=== PATIENT | male | born 1935 | race Caucasian/White ===

== ENCOUNTER 2023-07-01 17:56 | Emergency (ER) | payer MEDICARE, SELFPAY ==
[2023-07-01 17:56] VITALS: BMI 32.3
[2023-07-01 17:58] VITALS: BP 122/72
[2023-07-01 18:17] LABS: % Basophils 0.1 % (0-2); % Eosinophils 2.3 % (0-6); % Immature Granulocytes 0.3 % (0-0.5); % Monocytes 9.2 % (1.7-9.3); % Neutrophils 82.1 % (42.2-75.2); Absolute Eosinophils 0.2 10^3/uL (0-0.7); Absolute Lymphocytes 0.5 10^3/uL (1.2-3.4); Absolute Monocytes 0.8 10^3/uL (0.1-0.6); Absolute Neutrophils 7.3 10^3/uL (1.4-6.5); Hematocrit 34.9 % (39.0-52.0); Hemoglobin 11.8 g/dL (13.0-18.0); Mean Corp Hgb Conc. 33.8 g/dL (33.0-37.0); Mean Corpuscular Hgb 29.4 pg (27.0-31.0); Mean Platelet Volume 12.1 fL (7.4-10.4); Nucleated Red Blood Cells % 0 % (-); Platelet Count 130 10^3/uL (130-400); Red Blood Cell Count 4.01 10^6/uL (4.70-6.10); Red Cell Dist. Width 13.2 % (11.5-14.5); White Blood Cell Count 8.9 10^3/uL (4.8-10.8)
[2023-07-01 18:24] LABS: Urine Albumin Trace (Neg - Trace); Urine Bilirubin Negative (Negative); Urine Character Clear (Clear); Urine Color Yellow; Urine Glucose Negative (Negative); Urine Ketone Trace (Negative); Urine Leukocyte Trace (Negative); Urine Nitrite Negative (Negative); Urine Occult Blood Negative (Negative); Urine Specific Gravity 1.015 (<1.030); Urine Urobilinogen Negative (Neg - 1+)
[2023-07-01 18:30] LABS: Urine Hyaline Cast 0-2 /LPF (0-2); Urine Red Blood Cell None Seen /HPF (0-2); Urine Squamous Cell 0-2 /LPF (Few); Urine White Cell 0-2 /HPF (0-5)
[2023-07-01 18:47] LABS: ALT (SGPT) 26 U/L (0-50); AST (SGOT) 24 U/L (17-59); Albumin 3.9 g/dl (3.5-5.0); Alkaline Phosphatase 54 U/L (38-126); Blood Urea Nitrogen 25 mg/dl (9-20); Calcium 9.7 mg/dl (8.4-10.2); Carbon Dioxide 28 mmol/L (22-30); Chloride 100 mmol/L (98-107); Glucose 129 mg/dl (70-99); Lipase 96 U/L (23-300); Potassium 4.1 mmol/L (3.5-5.1); Sodium 131 mmol/L (135-145); Total Bilirubin 1.1 mg/dl (0.2-1.3); Total Protein 6.6 g/dl (6.3-8.2); eGFR > 60.00
--- NOTE | 2023-07-01 21:33 | ED.GENMED ---
History of Present Illness
General
Chief Complaint: Abdominal Pain
Source: patient
Exam Limitations: none
Time Seen by Provider: 07/01/23 20:51
Nursing documentation reviewed up to this point in time: agreed with
Travel History
Have you had any contact with someone who has COVID-19?: No
Do you have any symptoms of coronavirus? Fever > 100 degrees, chills, cough, shortness of breath, sore throat, loss of taste or smell, muscle aches, or headache?: No
History of Present Illness
History of Present Illness:
87 y/o M with h/o hld
no sig pmh
here with abd pain intermittent, lower radiating up to his mid abdomen x 5 days, with lack of appetite, occ nausea, dry heaving;
he has had less BMs than usual, but thinks that he moved his bowels today but they are harder than usual
he went to urgent care 3 days ago and they said to come to the ER for a ct scan but pt thought he would wait it out a little longer
he thoguht it got better but it came back and was worse today
he has no pain now
has tried tums for nausea
he denies abdomianl distension, fever, chills, urinary syptoms, cp, sob.
Past History
Past History
ED Past Medical History: GERD
ED Past Surgical History: Negative Cardiac
Social History
Tobacco: Non-smoker
Alcohol: None
Drug: None
Personal:
Living: other (With his in assisted living)
Employment: Retired
Family History
Family History: Negative Early CAD or CAD
Review of Systems
Review of Systems
Allergies reviewed?: Yes
All Other Systems: Not applicable
Phy Exam
Physical Exam
Physical Exam:
GENERAL: Alert , in no apparent distress
EYE: pupils equal and reactive
NECK: Supple
ENT: o/p clr, mmm.
CARDIAC: Regular rate and rhythm .
LUNGS: Clear breath sounds bilaterally, no acute respiratory distress, no wheezes/rales/rhonchi
ABDOMEN: Soft, without focal tenderness, no r/g, no cvat, normal bowel sounds
NEUROLOGICAL: Alert and oriented, no focal neuro deficits
SKIN: Warm and dry, skin intact.
MUSCULOSKELETAL: No edema, well perfused. neg racquel's sign
PSYCH: Normal and appropriate interaction.
Course
Orders/Labs/Results
Orders:
Orders
07/01/23 18:11
CMP [Comprehensive Metabolic Panel] Urgent
Complete Blood Count/With Diff Urgent
Lipase Urgent
Comment: abdominal pain
07/01/23 18:17
Urinalysis Reflex To Culture Urgent
Date Specimen was Collected: 07/01/23
Time Specimen was Collected: 18:10
Urine Microscopic Reflex Cult Urgent
07/01/23 21:32
CT Abd/Pel (IV only)-DH only Urgent
Comment:
Reason For Exam: lower abd pain x 5 days, nausea, lack of appetite
07/01/23 23:47
Amoxicillin 875 mg/Clav 125 mg [Augmentin 875 mg/125 mg] 1 tablet PO NOW STA
Abnormal Lab Results
07/01/23 07/01/23
18:11 18:17
RBC 4.01 L 10^6/uL
(4.70-6.10)
Hgb 11.8 L g/dL
(13.0-18.0)
Hct 34.9 L %
(39.0-52.0)
MPV 12.1 H fL
(7.4-10.4)
Absolute Neuts (auto) 7.3 H 10^3/uL
(1.4-6.5)
Absolute Lymphs (auto) 0.5 L 10^3/uL
(1.2-3.4)
Absolute Monos (auto) 0.8 H 10^3/uL
(0.1-0.6)
Neutrophils % 82.1 H %
(42.2-75.2)
Lymphocytes % 6.0 L %
(20.5-51.1)
Sodium 131 L mmol/L
(135-145)
BUN 25 H mg/dl
(9-20)
Glucose 129 H mg/dl
(70-99)
Urine Ketones Trace A
(Negative)
Leukocyte Esterase Rfl Trace A
(Negative)
07/01/23 18:11
07/01/23 18:11
Vital Signs
Initial and Last Documented VS:
Initial Vital Signs
Temp Pulse Resp BP Pulse Ox
98.1 F 87 18 122/72 96
07/01/23 17:58 07/01/23 17:58 07/01/23 17:58 07/01/23 17:58 07/01/23 17:58
Last Documented Vital Signs
Temp Pulse Resp BP Pulse Ox
98.1 F 87 18 122/72 96
07/01/23 17:58 07/01/23 17:58 07/01/23 17:58 07/01/23 17:58 07/01/23 17:58
MDM/Problems Addressed
Differential Diagnosis Includes:
diverticulitis, constipation
MDM/Problems Addressed:
87-year-old male with a history of hyperlipidemia and remote prostate cancer presents for lower abdominal pain radiating into his upper abdomen over the last 5 days
went to urgent care and was told to come here
some nausea and lack of appetite
and mild ocnstipation, no bloody stool
no fever
well appearing, comfortable, nontender exam currently
labs reviewed, mildly dry but pt tolreating oral fluids
ct scan shows possible mild acute diverticultis
other incidental findings d/w patient, copy of report given
will cover with augmentin bid
clear liquids
d/c vitals 142/78 hr 72
*Critical Care Note
Total Time (30-74mins, 75-104mins- exclusive of procedures): Not Applicable
ED Attending Note
-
Portions of this chart may have been created with voice recognition software.� Occasional wrong word or��sound alike� substitutions may have occurred due to the inherent limitations of voice recognition software.
Discharge Plan
Departure
Patient Disposition: Home (Routine Discharge)
Date of Disposition: 07/01/23
Time of Disposition: 23:48
Patient with high blood pressure during this ER visit?: Yes
Condition: Fair
Covid-19: Not Applicable
Discharge Problem:
Diverticulitis
Instructions: Clear Liquid Diet, Diverticulitis (DC)
Prescriptions:
New
amoxicillin-pot clavulanate 875-125 mg tablet
1 tab PO Q12H Qty: 20 0RF
Referrals:
Alex Ortiz MD [Family Provider] - Follow up in 2-3 days
Activity Restrictions/Additional Instructions:
YOUR CAT SCAN SHOWS MILD DIVERTICULITIS
YOU SHOULD EAT A CLEAR LIQUID DIET FOR 24-48 HOURS TO GIVE YOUR BOWELS REST.
TAKE augmentin twice A DAY FOR 7-10 DAYS STARTING TOMORROW
YOU CAN FOLLOW UP WITH YOUR FAMILY DOCTOR WELL A GI DOCTOR
RETURN FOR: FEVER, WORSE PAIN, VOMITING, INABILITY TO TOLERATE LIQUIDS, BLOODY DIARRHEA OR ANY CONCERNS.
Interventions
Interventions:
*Risk Screen - Suicide Last Done: 07/01/23 20:36
*General Assessment Last Done: 07/01/23 20:36
*Neglect/Abuse Screening Last Done: 07/01/23 20:36
ED- Fall Risk Assessment Last Done: 07/01/23 20:36
*ED COVID-19 Vaccine History Last Done: 07/02/23 00:00
*Nursing Disposition Last Done: 07/02/23 00:00
OD-Kecdwu-Hmukvohayf Assessment Last Done: 07/01/23 20:36
Discharge Date and Time
Discharge Date/Time: 07/02/23 00:00
Print Language: AMHARIC
[2023-07-01 23:30] VITALS: BP 142/81
[2023-07-01] MEDS: AUGMENTIN 875 MG/125 MG 1 TABLET PO (23:51)
[2023-07-01 23:55] VITALS: BP 142/81
[2023-07-02 01:52] VITALS: BP 142/81
== END 2023-07-02 | disposition home or self-care (01) ==
LOC: EMR 17:56
PROVIDERS: Emergency Medicine; EMERGENCY PHYSICIAN Student in an Organized Health Care Education/Training Program; FAMILY PHYSICIAN Family Medicine
DX: K57.92 Diverticulitis of intestine, part unspecified, without perforation or abscess without bleeding (principal); R11.0 Nausea; R63.0 Anorexia; K59.00 Constipation, unspecified; R03.0 Elevated blood-pressure reading, without diagnosis of hypertension; E78.5 Hyperlipidemia, unspecified; K21.9 Gastro-esophageal reflux disease without esophagitis; Z85.46 Personal history of malignant neoplasm of prostate
CPT/HCPCS: 99285; 74177; 80053; 81003; 81015; 83690; 85025; Q9967

== ENCOUNTER → 2023-10-08 06:32 | Day surgery (SDC) | payer MEDICARE, SELFPAY | LOC: GI 06:32 | PROVIDERS: ATTENDING PHYSICIAN Specialist | DX: Z12.11 Encounter for screening for malignant neoplasm of colon (principal); K57.30 Diverticulosis of large intestine without perforation or abscess without bleeding; K55.20 Angiodysplasia of colon without hemorrhage; D12.5 Benign neoplasm of sigmoid colon; R63.0 Anorexia; R63.4 Abnormal weight loss; R68.81 Early satiety; Q39.9 Congenital malformation of esophagus, unspecified; K44.9 Diaphragmatic hernia without obstruction or gangrene; K31.5 Obstruction of duodenum; Z86.010 Personal history of colon polyps | CPT/HCPCS: 45385; 43239; 88305; 88342 ==

== ENCOUNTER → 2023-10-18 09:04 | Outpatient (REF) | payer MEDICARE, SELFPAY | LOC: RAD 09:04 | PROVIDERS: ATTENDING PHYSICIAN Specialist; FAMILY PHYSICIAN Family Medicine | DX: K31.5 Obstruction of duodenum (principal); R63.4 Abnormal weight loss | CPT/HCPCS: 74246 ==

== ENCOUNTER → 2023-11-01 11:44 | Outpatient (REF) | payer MEDICARE, SELFPAY | LOC: HWRAD 11:44 | PROVIDERS: ATTENDING PHYSICIAN Physician Assistant; FAMILY PHYSICIAN Family Medicine | DX: M84.48XD Pathological fracture, other site, subsequent encounter for fracture with routine healing (principal) | CPT/HCPCS: 72220 ==

== ENCOUNTER 2024-01-05 13:14 | Emergency (ER) | payer MEDICARE, SELFPAY ==
[2024-01-05 13:17] VITALS: BP 153/85
[2024-01-05 13:41] LABS: % Basophils 0.1 % (0-2); % Eosinophils 0.2 % (0-6); % Immature Granulocytes 0.4 % (0-0.5); % Monocytes 6.9 % (1.7-9.3); % Neutrophils 86.4 % (42.2-75.2); Absolute Lymphocytes 0.6 10^3/uL (1.2-3.4); Absolute Monocytes 0.7 10^3/uL (0.1-0.6); Absolute Neutrophils 8.7 10^3/uL (1.4-6.5); Hematocrit 36.2 % (39.0-52.0); Hemoglobin 12.4 g/dL (13.0-18.0); Mean Corp Hgb Conc. 34.3 g/dL (33.0-37.0); Mean Corpuscular Hgb 29.2 pg (27.0-31.0); Mean Corpuscular Volume 85.2 fL (80.0-94.0); Mean Platelet Volume 11.8 fL (7.4-10.4); Nucleated Red Blood Cells % 0 % (-); Platelet Count 171 10^3/uL (130-400); Red Blood Cell Count 4.25 10^6/uL (4.70-6.10); Red Cell Dist. Width 13.1 % (11.5-14.5)
[2024-01-05 14:04] LABS: ALT (SGPT) 16 U/L (0-50); AST (SGOT) 21 U/L (17-59); Albumin 4.5 g/dl (3.5-5.0); Alkaline Phosphatase 55 U/L (38-126); Blood Urea Nitrogen 24 mg/dl (9-20); Calcium 10.1 mg/dl (8.4-10.2); Carbon Dioxide 29 mmol/L (22-30); Chloride 101 mmol/L (98-107); Glucose 124 mg/dl (70-99); Lipase 97 U/L (23-300); Potassium 4.4 mmol/L (3.5-5.1); Sodium 140 mmol/L (135-145); Total Bilirubin 2.3 mg/dl (0.2-1.3); Total Protein 7.2 g/dl (6.3-8.2); eGFR > 60.00
--- NOTE | 2024-01-05 15:28 | ED.GENMED ---
History of Present Illness
General
Chief Complaint: Abdominal Symptoms
Source: patient
Exam Limitations: none
Time Seen by Provider: 01/05/24 14:07
History of Present Illness
History of Present Illness:
88-year-old male complaining of ongoing intermittent nausea abdominal bloating. Symptoms have been going on for many months. Has had an endoscopy and a colonoscopy without explanation. Nausea is worse the last day or so. No fever chills urinary
symptoms etc.
Past History
Past History
ED Past Medical History: GERD and Other (Large hiatal hernia)
ED Past Surgical History: Tonsilectomy and Other (Hiatal hernia repair); Negative Cardiac
Social History
Tobacco: Non-smoker
Alcohol: None
Drug: None
Personal:
Living: other (With his in assisted living)
Employment: Retired
Family History
Family History: Negative Early CAD or CAD
Review of Systems
Review of Systems
All Other Systems: Not applicable
Constitutional: Denies fever or chills
Respiratory: Reports no symptoms
Cardiac: Reports no symptoms
Phy Exam
Physical Exam
Physical Exam:
GENERAL: Alert and oriented in no apparent distress
EYE: Orbits normal.
NECK: Supple
CARDIAC: Regular rate and rhythm without any obvious murmurs.
LUNGS: Clear breath sounds,normal
ABDOMEN: Soft, without focal tenderness or distention
NEUROLOGICAL: Alert and oriented , grossly non-focal
SKIN: Warm and dry, no rash or lesion, no discoloration, skin intact.
MUSCULOSKELETAL: No edema,no deformity.Good color
PSYCH: Normal and appropriate interaction.
Course
Orders/Labs/Results
Orders:
Orders
01/05/24 13:20
EKG [Electrocardiogram (*1)] Urgent
Reason for Study: Abdominal Pain
01/05/24 13:21
EKG- Treatment ONCE
01/05/24 13:30
Complete Blood Count/With Diff Urgent
Comprehensive Metabolic Panel Urgent
Lipase Urgent
01/05/24 14:20
CT Abd/pel W Iv And Oral Contr Urgent
Comment:
Reason For Exam: Abdominal bloating nausea weight loss
IV Insert/Care/Rem.- Treatment PRN
0.9% Sodium Chloride 500 ml [Nss] 500 ml IV BOLUS
Iohexol [Omnipaque] See Protocol PO NOW STA
01/05/24 15:37
Troponin I Urgent
01/05/24 18:42
Urinalysis Reflex To Culture Urgent
Date Specimen was Collected: 01/05/24
Time Specimen was Collected: 18:41
Abnormal Lab Results
01/05/24 01/05/24
13:30 18:42
RBC 4.25 L 10^6/uL
(4.70-6.10)
Hgb 12.4 L g/dL
(13.0-18.0)
Hct 36.2 L %
(39.0-52.0)
MPV 11.8 H fL
(7.4-10.4)
Absolute Neuts (auto) 8.7 H 10^3/uL
(1.4-6.5)
Absolute Lymphs (auto) 0.6 L 10^3/uL
(1.2-3.4)
Absolute Monos (auto) 0.7 H 10^3/uL
(0.1-0.6)
Neutrophils % 86.4 H %
(42.2-75.2)
Lymphocytes % 6.0 L %
(20.5-51.1)
BUN 24 H mg/dl
(9-20)
Glucose 124 H mg/dl
(70-99)
Total Bilirubin 2.3 H mg/dl
(0.2-1.3)
Urine Ketones Trace A
(Negative)
01/05/24 13:30
01/05/24 13:30
Vital Signs
Initial and Last Documented VS:
Initial Vital Signs
Temp Pulse Resp BP Pulse Ox
98.4 F 85 18 153/85 97
01/05/24 13:17 01/05/24 13:17 01/05/24 13:17 01/05/24 13:17 01/05/24 13:17
Last Documented Vital Signs
Temp Pulse Resp BP Pulse Ox
98.7 F 61 18 150/84 98
01/05/24 18:00 01/05/24 18:00 01/05/24 18:00 01/05/24 18:00 01/05/24 18:00
MDM/Problems Addressed
Differential Diagnosis Includes:
Low suspicion for an acute surgical issue however with patient's weight loss ongoing nausea will be evaluated for cardiac or acute abdominal explanation.
*Radiology
Radiology exam reviewed: radiology read reviewed (CT: Compression fracture in T12. Known. Thickening ascending colon. Bladder wall thickening.)
*Pulse Oximetry
Patient hypoxic: no
*EKG
Interpreted by ED Provider?: Yes
Interpretation: normal
Comparison EKG: no changes
Heart Rate: 88
Rate: normal
Rhythm: sinus and PAC's
[place]: normal axis
Interval: normal interval
QRS Pattern: normal QRS
Ischemia: no ischemia
*Critical Care Note
Total Time (30-74mins, 75-104mins- exclusive of procedures): Not Applicable
Data Reviewed
Review of Other/Old Records Reveals: Labs, Radiology Studies and Testing
Update Note
Update Note:
Patient medically stable and nontoxic. Nothing acutely surgical or requiring admission. Copy of CT report given. Will follow-up bladder wall thickening with urology. Will contact his gizzard puller for the ascending colon issue.
ED Attending Note
-
Portions of this chart may have been created with voice recognition software.� Occasional wrong word or��sound alike� substitutions may have occurred due to the inherent limitations of voice recognition software.
Discharge Plan
Departure
Patient Disposition: Home (Routine Discharge)
Date of Disposition: 01/05/24
Time of Disposition: 19:16
Patient with high blood pressure during this ER visit?: Yes
Condition: Good
Discharge Problem:
Recurring nausea/weight loss, Thickening ascending colon, Bladder wall thickening, Known T12 compression fracture, Chronic inflammation right mid lung
Instructions: Nausea and Vomiting, Adult (DC), Abdominal Pain, BLOOD PRESSURE
Prescriptions:
New
ondansetron 4 mg tablet,disintegrating
4 mg PO TIDPRN PRN (Reason: nausea/vomiting) Qty: 14 0RF
No Action
amoxicillin-pot clavulanate 875-125 mg tablet
1 tab PO Q12H Qty: 20 0RF
Referrals:
Weston Gil MD [Active] - Next open appointment
Rip Phan MD [Active] - Next open appointment
Alex Ortiz MD [Family Provider] -
Activity Restrictions/Additional Instructions:
Follow-up with GI per the CT report
Follow-up with urology per the CT report
Follow-up with your primary physician
The nausea medicine prescription was sent to your pharmacy
Interventions
Interventions:
*Risk Screen - Suicide Last Done: 01/05/24 13:17
*General Assessment Last Done: 01/05/24 13:17
*Neglect/Abuse Screening Last Done: 01/05/24 13:17
ED- Fall Risk Assessment Last Done: 01/05/24 14:00
*ED COVID-19 Vaccine History Last Done: 01/05/24 13:17
*Nursing Disposition Last Done: 01/05/24 19:43
GU-Bnqcwa-Geocdgkdtq Assessment Last Done: 01/05/24 14:00
Discharge Date and Time
Discharge Date/Time: 01/05/24 19:15
Print Language: CAMBODIAN
[2024-01-05] MEDS: OMNIPAQUE 50 ML PO (15:38)
[2024-01-05] MEDS: NSS 500 IV (15:38)
[2024-01-05 16:07] LABS: Troponin I < 0.012 ng/ml
[2024-01-05 18:00] VITALS: BP 150/84
[2024-01-05 18:52] LABS: Urine Albumin Negative (Neg - Trace); Urine Bilirubin Negative (Negative); Urine Character Clear (Clear); Urine Color Straw; Urine Glucose Negative (Negative); Urine Ketone Trace (Negative); Urine Leukocyte Negative (Negative); Urine Nitrite Negative (Negative); Urine Occult Blood Negative (Negative); Urine Urobilinogen Negative (Neg - 1+)
== END 2024-01-05 19:15 | disposition home or self-care (01) ==
LOC: EMR 13:14
PROVIDERS: Emergency Medicine; EMERGENCY PHYSICIAN Emergency Medicine; FAMILY PHYSICIAN Family Medicine
DX: R11.0 Nausea (principal); R63.4 Abnormal weight loss; M48.54XA Collapsed vertebra, not elsewhere classified, thoracic region, initial encounter for fracture; J98.4 Other disorders of lung; R14.0 Abdominal distension (gaseous); K21.9 Gastro-esophageal reflux disease without esophagitis
CPT/HCPCS: 99284; 96360; 74177; 80053; 81003; 83690; 84484; 85025; 93005; Q9967

== ENCOUNTER 2024-01-10 13:35 | Inpatient (IN) | payer MEDICARE, SELFPAY ==
[2024-01-10] VITALS (19 sets, daily range): BP systolic 94–121; BP diastolic 57–95; BMI 22.5
[2024-01-10] MEDS: NSS 500 IV ×2 (10:48→13:12)
[2024-01-10 11:05] LABS: % Basophils 0.1 % (0-2); % Eosinophils 0.5 % (0-6); % Immature Granulocytes 0.2 % (0-0.5); % Lymphocytes 9.6 % (20.5-51.1); % Neutrophils 79.6 % (42.2-75.2); Absolute Lymphocytes 0.8 10^3/uL (1.2-3.4); Absolute Monocytes 0.8 10^3/uL (0.1-0.6); Absolute Neutrophils 6.5 10^3/uL (1.4-6.5); Hematocrit 34.4 % (39.0-52.0); Hemoglobin 11.8 g/dL (13.0-18.0); Mean Corp Hgb Conc. 34.3 g/dL (33.0-37.0); Mean Corpuscular Hgb 29.8 pg (27.0-31.0); Mean Corpuscular Volume 86.9 fL (80.0-94.0); Mean Platelet Volume 12.7 fL (7.4-10.4); Nucleated Red Blood Cells % 0 % (-); Platelet Count 149 10^3/uL (130-400); Red Blood Cell Count 3.96 10^6/uL (4.70-6.10); Red Cell Dist. Width 12.7 % (11.5-14.5); White Blood Cell Count 8.1 10^3/uL (4.8-10.8)
[2024-01-10 11:13] LABS: ALT (SGPT) 14 U/L (0-50); AST (SGOT) 17 U/L (17-59); Albumin 3.6 g/dl (3.5-5.0); Alkaline Phosphatase 56 U/L (38-126); Blood Urea Nitrogen 35 mg/dl (9-20); Calcium 8.9 mg/dl (8.4-10.2); Carbon Dioxide 27 mmol/L (22-30); Chloride 99 mmol/L (98-107); Estimated Creatinine Clearance 49 ml/min; Glucose 118 mg/dl (70-99); Magnesium 1.9 mg/dl (1.6-2.3); Potassium 3.9 mmol/L (3.5-5.1); Sodium 135 mmol/L (135-145); Total Bilirubin 1.9 mg/dl (0.2-1.3); Total Protein 5.9 g/dl (6.3-8.2); eGFR > 60.00
--- NOTE | 2024-01-10 13:03 | ED.GENMED ---
History of Present Illness
General
Chief Complaint: Heart Rate Problem
Source: patient
Time Seen by Provider: 01/10/24 10:40
History of Present Illness
History of Present Illness:
88-year-old male who presents from his nurse practitioner who discovered he had new onset atrial fibrillation. The patient does admit that he has lost a significant weight recently and has been weak and fatigued. Patient states that he is not
really sure what has been going on but he has not been able to eat very well. He was seen in the emergency department recently and had labs and a CT scan. He also had an endoscopy and colonoscopy by gastroenterology back in October. Patient denies
chest pain. Denies palpitations. No shortness of breath. No fevers.
Past History
Past History
ED Past Medical History: GERD and Other (Large hiatal hernia, prostate cancer)
ED Past Surgical History: Tonsilectomy and Other (Hiatal hernia repair); Negative Cardiac
Social History
Tobacco: Non-smoker
Alcohol: None
Drug: None
Personal:
Living: other (With his in assisted living)
Employment: Retired
Family History
Family History: Negative Early CAD or CAD
Phy Exam
Physical Exam
Physical Exam:
CONSTITUTIONAL Patient alert and oriented to person, place and time. Well-appearing. Vital signs reviewed.
HEAD atraumatic, normocephalic.
EYES eyelids normal to inspection, Extraocular muscles intact, Conjunctiva normal, Sclera normal.
NECK normal range of motion, Trachea midline, no jugular venous distention.
RESPIRATORY CHEST No respiratory distress noted, Chest expansion equal, Bilateral breath sounds clear.
CARDIOVASCULAR irregularly irregular and tachycardic, Heart sounds normal.
ABDOMEN abdomen nontender, Bowel sounds normal. No distention.
BACK normal inspection, no obvious deformities
UPPER EXTREMITY range of motion normal, Motor strength normal, no cyanosis, no edema.
LOWER EXTREMITY range of motion normal, Motor strength normal, no cyanosis, no edema.
NEURO Speech normal, No focal motor deficits, Marcella coma scale 15, Memory normal, Cranial Nerves intact to screening exam.
SKIN skin warm, dry, and normal in color.
Course
Orders/Labs/Results
Orders:
Orders
01/10/24 10:38
Electrocardiogram (*1) Urgent
Reason for Study: Vertigo / Dizzy
EKG- Treatment ONCE
01/10/24 10:47
0.9% Sodium Chloride 500 ml [Nss] 500 ml IV BOLUS
01/10/24 10:51
Complete Blood Count/With Diff Urgent
Comprehensive Metabolic Panel Urgent
Magnesium Urgent
TSH Reflex To Free T4 Urgent
01/10/24 12:39
0.9% Sodium Chloride 500 ml [Nss] 500 ml IV BOLUS
01/10/24 13:03
Diltiazem 125 mg/125 ml Nss [Cardizem] 125 mg in 125 ml IV NOW
Initial dose in mg/hr, then titrate:: 5
Titrate to keep:: Heart rate 80-100 bpm
Titrate by mg/hr:: 5 mg/hr
Frequency of titrations (minutes):: 15
Maximum dose in mg/hr:: 15
Diltiazem HCl [Cardizem] 10 mg IV NOW STA
Abnormal Lab Results
01/10/24
10:51
RBC 3.96 L 10^6/uL
(4.70-6.10)
Hgb 11.8 L g/dL
(13.0-18.0)
Hct 34.4 L %
(39.0-52.0)
MPV 12.7 H fL
(7.4-10.4)
Absolute Lymphs (auto) 0.8 L 10^3/uL
(1.2-3.4)
Absolute Monos (auto) 0.8 H 10^3/uL
(0.1-0.6)
Neutrophils % 79.6 H %
(42.2-75.2)
Lymphocytes % 9.6 L %
(20.5-51.1)
Monocytes % 10.0 H %
(1.7-9.3)
BUN 35 H mg/dl
(9-20)
Glucose 118 H mg/dl
(70-99)
Total Bilirubin 1.9 H mg/dl
(0.2-1.3)
Total Protein 5.9 L g/dl
(6.3-8.2)
01/10/24 10:51
01/10/24 10:51
Vital Signs
Initial and Last Documented VS:
Initial Vital Signs
Temp Pulse Resp BP Pulse Ox
98.5 F 119 20 102/63 98
01/10/24 10:34 01/10/24 10:34 01/10/24 10:34 01/10/24 10:34 01/10/24 10:34
Last Documented Vital Signs
Temp Pulse Resp BP Pulse Ox
98.5 F 111 20 96/85 97
01/10/24 10:34 01/10/24 13:00 01/10/24 13:00 01/10/24 13:00 01/10/24 13:00
MDM/Problems Addressed
MDM/Problems Addressed:
Atrial fibrillation with RVR, volume contraction
*Pulse Oximetry
Patient hypoxic: no
*EKG
Interpreted by ED Provider?: Yes
Interpretation: abnormal
Rate: tachycardiac
Rhythm: a-fib
[place]: normal axis
Ischemia: non-specific ST changes
*[employer] Interpretation
Rate: tachycardiac
Interpretation: abnormal
Rhythm: a-fib
*Critical Care Note
Total Time (30-74mins, 75-104mins- exclusive of procedures): 30 minutes
Data Reviewed
Review of Other/Old Records Reveals: Radiology Studies (CT report reviewed from January 04), Operative Reports (Colonoscopy report reviewed from October) and Other
Source: patient
Patient Management
Discussion with other providers: Hospitalist
Escalation/DeEscalation of care consider admission/obs:
Patient arrives with relative hypotension and atrial fibrillation with RVR. Unclear of onset of A-fib but did have an EKG 5 days ago that was normal sinus rhythm. Control the rate. Continue IV fluids and admit
ED Attending Note
-
Portions of this chart may have been created with voice recognition software.� Occasional wrong word or��sound alike� substitutions may have occurred due to the inherent limitations of voice recognition software.
Discharge Plan
Departure
Patient Disposition: Admit
Date of Disposition: 01/10/24
Time of Disposition: 13:03
Admit to: Telemetry
Presentation/result/management discussed w/ accepting MD/DO: Hospitalist
Discharge Problem:
Atrial fibrillation with RVR
Prescriptions:
No Action
amoxicillin-pot clavulanate 875-125 mg tablet
1 tab PO Q12H Qty: 20 0RF
ondansetron 4 mg tablet,disintegrating
4 mg PO TIDPRN PRN (Reason: nausea/vomiting) Qty: 14 0RF
Referrals:
Sonal Quintanilla CRNP [Family Provider] -
Interventions
Interventions:
*Risk Screen - Suicide Last Done: 01/10/24 10:41
*General Assessment Last Done: 01/10/24 10:41
*Neglect/Abuse Screening Last Done: 01/10/24 10:41
ED- Fall Risk Assessment Last Done: 01/10/24 10:41
*ED COVID-19 Vaccine History Last Done: 01/10/24 10:41
ED- Cardiac Assessment Last Done: 01/10/24 10:41
ED- Pulmonary Assessment Last Done: 01/10/24 10:41
Discharge Date and Time
Print Language: CENTRAL AFRICAN
[2024-01-10] MEDS: CARDIZEM 10 MG IV (13:08)
[2024-01-10] MEDS: CARDIZEM 125 IV (13:12)
--- NOTE | 2024-01-10 13:30 | HPS.HSE ---
Family Physician
-
Family Physician: LUNA Wall
Chief Complaint
-
SCHEDULE MANAGER sent in for new AF and Wt loss
History of Present Illness
88M HX GERD, large hiatal hernia, prostate CA :
- Primary SCHEDULE MANAGER sent patient to ER for new onset atrial fibrillation
- reports poor PO , weak and fatigue with unintentional significant wt loss
- He also had an endoscopy and colonoscopy by gastroenterology back in October 2023: report and patho as below
- 01/05/24 CT AP w IV contrast reviewed as below
Medical History
Past Medical History
Past Medical History: Reports Cancer (prostate ) and GERD (large hiatal hernia )
Past Surgical History: Reports Tonsilectomy and Other (hernial repair )
Social History
Tobacco: Non-smoker
Alcohol: None
Personal:
Living: With Family
Family History
Family History: Not pertinent and CAD
Allergies / Home Medications
Allergies reflects when Allergies were last updated in [facility].
Home Medications with original date entered in [facility]
Allergy/Medication List:
Allergies
Allergy/AdvReac Type Severity Reaction Status Date / Time
No Known Drug Allergies Allergy Unknown Verified 01/10/24 10:41
Home Medications
atorvastatin 80 mg tablet (Lipitor) 80 mg PO HS 01/10/24
omeprazole 20 mg tablet,delayed release 20 mg PO DAILY 01/10/24
polyethylene glycol 3350 17 gram oral powder packet (Miralax) 17 g PO DAILYPRN PRN CONSTIPATION 01/10/24
tadalafil 5 mg tablet 5 mg PO QPM 01/10/24
tamsulosin 0.4 mg capsule (Flomax) 0.4 mg PO HS 01/10/24
Review of Systems
-
Constitutional: Reports Weight Loss
EENT: Reports No Symptoms
Respiratory: Reports No Symptoms
Cardiac: Reports See HPI
Abdomen/GI: Reports No Symptoms
: Reports No Symptoms
Musculoskeletal: Reports No Symptoms
Skin: Reports No Symptoms
Neurological: Reports No Symptoms
Endocrine: Reports No Symptoms
Hematologic/Lymphatic: Reports No Symptoms
Psych: Reports No Symptoms
Physical Exam
Vital Signs
Vital Signs
Temp Pulse Resp BP Pulse Ox
98.5 F 111 20 119/80 97
01/10/24 10:34 01/10/24 13:08 01/10/24 13:00 01/10/24 13:08 01/10/24 13:00
Physical Exam
General: Well Developed, Well Nourished and No Apparent Distress
HEENT: NormoCephalic, Moist mucous membranes and Atraumatic
Respiratory: Clear
Cardiac: Irregular Rhythm and Tachycardia
GI: Soft, Non Tender, Non Distended and Normal Bowel Sounds; No Organomegaly
Rectal: Deferred by Provider
Musculoskeletal: No Clubbing, No Cyanosis and No Edema
Skin: No Rash
Neuro: Nonfocal/grossly intact
Laboratory Results
-
01/10/24 10:51
01/10/24 10:51
Laboratory Results
Total Bilirubin 1.9 mg/dl (0.2-1.3) H 01/10/24 10:51
AST 17 U/L (17-59) 01/10/24 10:51
ALT 14 U/L (0-50) 01/10/24 10:51
Alkaline Phosphatase 56 U/L (38-126) 01/10/24 10:51
Data Reviewed
-
CT Scan: Report Reviewed by me
Medical Tests (Nuc Med, Echo, EKG etc): Report Reviewed by me
Lab Data: Labs Reviewed by me
Old Records: Reviewed
Impression/Plan
-
Data
Hgb 11.8 nl MCV
BUN 35 nl Cr eGFR > 60
TB 1.9
TSH nl @ 1.5
01/10/24 & 1038 EKG
ATRIAL FIBRILLATION WITH RAPID VENTRICULAR RESPONSE
ABNORMAL ECG
WHEN COMPARED WITH ECG OF 05-JAN-2024 13:25,
ATRIAL FIBRILLATION HAS REPLACED SINUS RHYTHM
Confirmed by MD TOM, ANDREY Delacruz ([id number]) on 01/10/2024 11:11:14 AM
01/05/24 CT AP w IV contrast
There is a moderate compression deformity of the T12 vertebral body with a new mild compression deformity of the L1 vertebral body which is new from prior CT in June 2023.
Chronic tree-in-bud opacities and bronchiectasis within the right middle lobe, similar in appearance to prior and favored to represent chronic/indolent infectious process.
There is apparent circumferential wall thickening within the proximal ascending colon which may be secondary to underdistention however a lesion could appear similar. Consider follow-up colonoscopy for further evaluation.
Mild circumferential wall thickening with suggestion of mild stranding along the urinary bladder which can be seen with cystitis.
Large hiatal hernia, unchanged unchanged in appearance from prior.
10/08/23 EGD
Tortuous esophagus.
- Large hiatal hernia.
- Acquired duodenal stenosis. Biopsied.
- Biopsies were taken with a cold forceps for Helicobacter pylori testing.
- Biopsies were taken with a cold forceps for evaluation of celiac disease.
10/08/23 Biopsy from EGD and C Scope
A. Duodenum, bulb, biopsy:
- Unremarkable duodenal mucosa with well-formed villi.
- No active duodenitis or intraepithelial lymphocytosis is seen.
B.Duodenum, 2nd portion, biopsy:
- Unremarkable duodenal mucosa with well-formed villi.
- No active duodenitis or intraepithelial lymphocytosis is seen.
C. Stomach, antrum, biopsy:
- Unremarkable gastric mucosa.
- Immunostain performed with working control is negative for Helicobacter*.
D. Stomach, body, biopsy:
- Unremarkable gastric mucosa.
- Immunostain performed with working control is negative for Helicobacter*.
E. Duodenal bulb, stricture, biopsy:
- Benign duodenal mucosa without significant histopathologic abnormality.
- No active duodenitis or intraepithelial lymphocytosis is seen
Colon, sigmoid, polyp, biopsy: Tubular adenoma. No high-grade dysplasia is identified
ASSESSMENT & PLAN
New onset rapid AF : asymptomatic
Known to [facility] in 2012 Stress Echo
Of note; Dr Dylon Jackson is cardilogist of his
- Diltiazem gtt
- S/p IV NS 1.5 L at ER for hypotension - improved to 110/80
- ECHO in AM
- Defer AC to card evaluation
- [facility] card consulted
Reported wt loss and poor PO
- nl TSH
- unremarkable EGD and C Scopt as of October [address] suggest Circumferential wall thickening within the proximal ascending colon which may be secondary to underdistention however a lesion could appear similar.
- Consider follow-up OP colonoscopy upon DC
- Known to Dr Holcomb
HLD
- on Lipitor
HX Prostate CA s/p XRT at [facility] 10 yrs ago
- on Tamsulosin
DVT Px: LMWH
Code: Full code
IMU for Diltiazem titration
--- NOTE | 2024-01-10 17:00 | PTCARENOTE ---
Received patient on admission from ED via stretcher with cardizem infusing at 5mg/hr. Patient able to walk short distance from stretcher to bed without difficulty. HR increased to 120s but recovered to 90s shortly after resting in bed. Echo
completed. Patient assisted to stand at side of bed to urinate and HR increased to 140s; remained low 100s after getting back to bed. Asymptomatic otherwise. Cardizem increased to 10mg/hr as per order; HR currently 96 with patient in bed. See
worklist for full assessment, vital signs and med titration. Admission questions completed.
Patient requested his son be listed as primary contact with new phone number provided; admissions notified and chart updated. He states his is in another healthcare facility.
[2024-01-10] MEDS: LOVENOX 40 MG SC (17:21)
[2024-01-10] MEDS: FLOMAX 0.4 MG PO (21:21)
[2024-01-10] MEDS: LIPITOR 80 MG PO (21:21)
[2024-01-11] VITALS (16 sets, daily range): BP systolic 107–138; BP diastolic 54–81; BMI 22.5
[2024-01-11] MEDS: CARDIZEM 125 IV (02:41)
[2024-01-11 05:00] LABS: Hematocrit 34.2 % (39.0-52.0); Hemoglobin 11.5 g/dL (13.0-18.0); Mean Corp Hgb Conc. 33.6 g/dL (33.0-37.0); Mean Corpuscular Hgb 29.3 pg (27.0-31.0); Mean Corpuscular Volume 87.2 fL (80.0-94.0); Mean Platelet Volume 12.3 fL (7.4-10.4); Platelet Count 137 10^3/uL (130-400); Red Blood Cell Count 3.92 10^6/uL (4.70-6.10); Red Cell Dist. Width 12.9 % (11.5-14.5); White Blood Cell Count 7.7 10^3/uL (4.8-10.8)
[2024-01-11 05:39] LABS: TSH 1.43 uIU/ml (0.47-4.68)
[2024-01-11 06:55] LABS: Blood Urea Nitrogen 26 mg/dl (9-20); Calcium 8.7 mg/dl (8.4-10.2); Carbon Dioxide 25 mmol/L (22-30); Chloride 100 mmol/L (98-107); Estimated Creatinine Clearance 61 ml/min; Glucose 104 mg/dl (70-99); HDL Cholesterol 56 mg/dl; LDL Cholesterol, Calculated 86 mg/dl; Potassium 3.8 mmol/L (3.5-5.1); Sodium 134 mmol/L (135-145); Total Cholesterol 160 mg/dl (50-199); Triglyceride 92 mg/dl (10-149); Very Low Density Lipoprotein 18 mg/dl (0-30); eGFR > 60.00
--- NOTE | 2024-01-11 07:20 | SUR.OPER ---
Cannot verify VS captured from prior shift.
--- NOTE | 2024-01-11 08:56 | W.PN.HOSP.TC ---
Addendum entered and electronically signed by Gala Cerna MD, Resident 01/13/24 12:01:
Moderate protein calorie malnutrition
Addendum entered and electronically signed by Lisa Calzada MD 01/11/24 14:01:
I saw and evaluated the patient independently. I reviewed the resident�s note and agree with findings and plan as documented by Dr. Cerna.
GENERAL: well developed, well nourished, male in no apparent distress
HEENT: NC/AT
HEART: regular rate and rhythm, +S1, +S2
LUNGS : clear to auscultation bilaterally
ABDOM: soft, nontender, nondistended, + bowel sounds
EXT: no cyanosis, clubbing, or edema
NEUROLOGIC: grossly intact
New onset atrial fibrillation, likely paroxysmal--did get cardizem drip--now converted to NSR--ECHO with preserved EF--transition to Toprol XL daily and start Eliquis--apprec pricing by --TSH WNL- Reassess for discharge home later today- Will need
outpatient cardiology follow up
GI complaints/Hiatal hernia/unintensional weight loss-- 45lbs over 6 month, poor appetite and bloating for past 1-2 months, and abdominal pain which may be radiation of chronic back pain--being worked up by GI as outpt--return to GI for ongoing
w/u- Continue prn bowel regimen- Continue protonix; takes omeprazole 20mg qd at home
Stress- Reports lot of stress with having Parkinsons disease, says she is now at a care facility- May be contributing to GI complaints, though he still needs GI workup - Says he manages stress well, declines further intervention
HLD- continue home atorvastatin
H/o prostate CA s/p [facility] 10 [facility]- continue home tamsulosin
DVT proph
Code status-- full
ok for d/c
Original Note:
Today's Communication/Plan
-
start Toprol xl 25mg and eliquis, stop diltiazem gtt
Assessment / Plan
Assessment / Plan
88yo M with PMH large hiatal hernia, prostate CA who presented to ED 01/10/24 for episode dizziness that AM and new onset afib sent in by [employer]. Otherwise did not know he was in afib, denies ongoing lightheadedness, palpitations, etc.
New onset atrial fibrilation, likely paroxysmal
- Started on diltiazem gtt for HR > 110
- Echo 01/10/24 showed normal LV function, EF 55-60%, no regional wall motion, no thrombus
- TSH wnl, A1C pending
- 01/10 spontaneous conversion to normal sinus, HR has been 80s-90s
- Discussed case with cardiology- will transition to diltiazem gtt to Toprol xl 25mg PO daily
- Initiate eliquis 5mg BID, CM consult for pricing
- Reassess for discharge home later today
- Will need outpatient cardiology follow up
GI complaints
Hiatal hernia
- Reports unintentional weight loss of 45# over 6 month, poor appetite and bloating for past 1-2 months, and abdominal pain which may be radiation of chronic back pain
- He previously has had EGD, colonoscopy, CT imaging prior to this hospitalization and he follows with GI (Dr Gil)
- Tolerating PO diet, will defer further workup to outpatient GI (next appointment scheduled for 01/14)
- Continue prn bowel regimen
- Continue protonix; takes omeprazole 20mg qd at home
Stress
- Reports lot of stress with having Parkinsons disease, says she is now at a care facility
- May be contributing to GI complaints, though he still needs GI workup
- Says he manages stress well, declines further intervention
HLD- continue home atorvastatin
H/o prostate CA [facility]- continue home tamsulosin
Code status: full
VTE ppx: lovenox --> eliquis
Diet: low Na, ensure supplementation
Dispo planning: anticipate dc home, timing tbd
Anticipated Discharge: Within 24 hours
Subjective/Interval History
-
Date of Service: January 11, 2024
Overnight, spontaneously converted from afib to normal sinus rhythm. He says he feels 'okay.' This morning complains of chronic poor appetite, chronic back pain which he rates a 2 out of 10 right now. His back pain occasionally radiates to abdomen-
no abdominal pain this AM. He denies lightheadedness, dizziness, chest pain, palpitations, shortness of breath, nausea, vomiting. One episode of diarrhea last week, no ongoing diarrhea. Last BM ws 3 days ago, no black or bloody stools. Reports solid
bowel movements that are difficult to pass, though they are 'less rock hard' compared to when he was on oxycodone for back pain > 1 month ago. At home ambulates independently without difficulty, has not been OOB today. Tolerating PO diet.
Objective Data
-
Labs:
Laboratory Results
01/11/24 01/11/24 01/11/24
04:30 05:20 06:14
WBC 7.7
Hgb 11.5 L
Hct 34.2 L
Plt Count 137
Sodium Cancelled Cancelled 134 L
Potassium Cancelled Cancelled 3.8
Chloride Cancelled Cancelled 100
Carbon Dioxide Cancelled Cancelled 25
BUN Cancelled Cancelled 26 H
Creatinine Cancelled Cancelled 0.8
Glucose Cancelled Cancelled 104 H
Calcium Cancelled Cancelled 8.7
Vital Signs:
Vital Signs
Temp Pulse Resp BP Pulse Ox
98.4 F 95 19 107/63 96
01/11/24 07:05 01/11/24 00:00 01/11/24 00:00 01/11/24 00:00 01/11/24 00:00
Review of Systems
-
History Source: Patient
All other systems: Reviewed and negative
Physical Exam
-
General: Well Developed, Well Nourished, No Apparent Distress, Comfortable, Conversant and Other (appears stated age)
HEENT: Normocephalic and Atraumatic; Negative Oxygen
Respiratory: Clear to Auscultation and Non Labored Respirations; Negative Wheezes
Cardiac: Regular Rhythm and S1/S2
GI: Soft, Nontender, Nondistended and Normal Bowel Sounds (infrequent bowel sounds)
Musculoskeletal: No Edema
Skin: Warm and Dry
Neuro: Awake, Alert, Oriented, AO x 3 and Nonfocal/Grossly Intact
Psych: Calm, Intact Judgement/Insight and Anxious (anxious about GI complaints)
[2024-01-11] MEDS: PROTONIX 40 MG PO (08:57)
[2024-01-11 09:18] LABS: Glycohemoglobin (HgbA1c) 6.1 % (4.0-5.6)
--- NOTE | 2024-01-11 10:19 | CM ---
Addendum entered by Amparo Roca 01/11/24 10:34:
for 5mg BID of Eliquis, it would cost $47/month. Attending aware via TT.
Original Note:
CM consult placed for Eliquis pricing. Awaiting confirmation of dose by physician.
[2024-01-11] MEDS: TOPROL XL 25 MG PO (12:14)
--- NOTE | 2024-01-11 12:21 | PTCARENOTE ---
Pt presents as assessed. Aox3. Received pt in NSR with PAC's on tele monitor. Order received to start Toprol and d/c Cardizem gtt- see intervention. Pt with poor appetite, encouraged to try to increase PO intake. Care as documented. Able to make
needs known, call pritchard within reach.
--- NOTE | 2024-01-11 14:19 | W.DCSUMMARY ---
Addendum entered and electronically signed by Lisa Calzada MD 01/11/24 15:26:
Read, reviewed, and agree. See same day progress note for additional details. Time spent coordinating care, DC planning, review of DC plan of care with resident, transition of care, review of records in EMR, med rec, consults, notes, d/w
consultants, nursing, family, and CM = < 30 minutes
Original Note:
Discharge Summary
Discharge Data
Date of Admission: 01/10/24
Date of Discharge: 01/11/24
-
Pending Results: No
Hospital Course
Discharging Physician : Dr. Cerna, Dr. Calzada
Disposition : Home
Primary care physician : Sonal Quintanilla
Principal Discharge diagnosis : New onset atrial fibrillation likely paroxysmal
Chronic Discharge diagnosis : Hiatal hernia, unintentional weight loss, hyperlipidemia, stress, history of prostate cancer
Hospital Course : Presented to ED 01/10/24 for episode of dizziness and new onset afib, sent in by PCP. While in hospital he was started on IV diltiazem drip and his rhythm converted to normal sinus spontaneously. He was transitioned to metoprolol
succinate ER 25mg PO daily and started on eliquis 5mg BID. He was asymptomatic. On day of discharge he was stable. He will follow up with cardiology and PCP outpatient. He also has several chronic GI complaints for which he already has outpatient GI
appointment schduled for 01/15/24.
Important imaging findings :
Echo 01/10/24
CONCLUSIONS
Normal left ventricular size, wall thickness and systolic function. No regional
wall motion abnormalities are seen. LV ejection fraction is 55-60% by Thompson's
method of discs. Diastolic function indeterminate.
Normal right ventricular size. Normal right ventricular systolic function.
Aortic sclerosis without stenosis.
No prior study available for comparison.
Procedure findings : N/A
Discharge Plan
-
Patient Disposition: Home (Routine Discharge)
Discharge Diagnosis/Procedures: New onset atrial fibrillation
Condition: Good
Diet: Low Sodium and Supplements
Additional Diets: Continue Ensure supplements
Activity: No restrictions and As tolerated
Driving Restrictions: As prior to admission
Bathing Restrictions: OK to Shower
Instructions: Atrial Fibrillation (DC)
Referrals:
Sonal Quintanilla CRNP [Family Provider] - in less than 1 week (Follow up with your Primary Care Provider within 1 week of hospital discharge)
Weston Gil MD [Active] - 01/15/24 (You have an appointment scheduled with Dr. Gil (Gastroenterology) on 01/15/24. Please call the GI office for questions or concerns.)
Chandler Terry MD [Active] - in one to two weeks (Please call the Cardiology office to schedule an appointment for your new atrial fibrillation)
Additional Discharge Medication Instructions: New medications:
- Eliquis 5mg tablet- Take 1 tablet two times per day
- Metoprolol succinate (also known as Toprol XL) 25mg tablet- Take 1 tablet once per day
Ask your Primary Care Provider or your Electric Switch Repairer for refills of these medications.
Prescriptions:
New
Eliquis 5 mg Tablet
5 mg PO BID Qty: 60 0RF
metoprolol succinate 25 mg Tablet Extended Release 24 Hr
25 mg PO DAILY Qty: 30 0RF
Continued
atorvastatin [Lipitor] 80 mg Tablet
80 mg PO HS
polyethylene glycol 3350 [Miralax] 17 gram Powder In Packet
17 g PO DAILYPRN PRN (Reason: CONSTIPATION)
tamsulosin [Flomax] 0.4 mg Capsule
0.4 mg PO HS
tadalafil 5 mg Tablet
5 mg PO QPM
omeprazole 20 mg Tablet,Delayed Release (Dr/Ec)
20 mg PO DAILY
Discharge Date and Time
Print Language: YI
--- NOTE | 2024-01-11 14:44 | CM ---
CM reviewed chart. Introduced self and role. CM consult for Eliquis pricing. Eliquis for A-fib educational booklet given to patient. Also, explained Eliquis vela with his insurance and the 2 coupons included in the booklet. Patient verbalized
understanding and agreeable to plan.
Patient lives at [facility] with his . They in a apartment. No steps to enter into the apartment. He is independent and does not utlilize any DME. He owns a walker and wheelchair. He uses Dr. Pool Quintanilla and the [facility] in [place]. He is
retired. He used to work at a bank; creating large loans for large companies. Denies any SDOHs.
ANTICIPATED D/C PLAN: Home with Eliquis when medically cleared.
--- NOTE | 2024-01-11 15:31 | W.PN.UPDATE ---
Addendum entered and electronically signed by Lisa Calzada MD 01/11/24 15:45:
Agree with documentation below.
Original Note:
Update Note
Progress Note Update
At bedside to evaluate patient and discuss plan. He feels well, VSS, remains in sinus rhythm, no difficulty ambulating or lightheadedness/dizziness/palpitations. Stable for discharge home, discussed medication regimen including eliquis BID and
toprol xl daily. Reviewed that Dr Calzada and I have discussed plan with cardiology who is in agreement and recommend following up with their office outpatient. Patient agreeable to plan and no further questions at this time. Discharge is in,
nursing updated as well.
--- NOTE | 2024-01-11 16:50 | PTCARENOTE ---
Pt for d/c home. Pt arranged transport with assistance from his independent living facility. Medications and instructions reviewed. Afib booklet given with d/c packet. IV and monitor equipment removed. D/c off unit via wheelchair.
--- NOTE | 2024-01-13 10:26 | PN.CDI ---
CDI
- -
CDI:
Physician Documentation Request
Admit Date: 01/10/24 13:35
Dear Doctor,
Please review the following and provide your response in the progress notes.
Clinical Indicators:
01/10 assessment: 'Patient meets ASPEN/AND criteria for Moderate Protein Calorie Malnutrition as evidenced by reported 33 lb weight loss over year, poor intake <75% of estimated energy needs for >/= one month, mild SQ loss over ribs, Moderate
muscle loss over calf, clavicle and mild muscle loss over temporals'
Based on the above information and your assessment, which of the following most accurately represents the patient's nutritional status?
Moderate malnutrition
Other (please specify)Unable to determine
Ephraim Criteria ([facility] Hospitalist 2017)
2 or more criteria must be present for either
non severe or severe malnutrition
Note that the criteria differs related to the
presence of an acute or chronic illness
Acute Illness Chronic Illness
Energy Intake Non Severe: <75% for >7 days Non Severe: <75% for >1 month
Severe: <50% for >5 days Severe: <75% for >1 month
Weight Loss Non Severe: 1-2% over 1 week Non Severe: 5% over 1 month
5% over 1 month 7.5% over 3 months
7.5% over 3 months 10% over 6 months
1 year N/A 20% over 1 year
Severe: >2% over 1 week Severe: >5% over 1 month
>5% over 1 month >7.5% over 3 months
>7.5% over 3 months >10% over 6 months
1 year N/A >20% over 1 year
Body Fat Non Severe: Mild Decrease Non Severe: Mild Loss
Severe: Moderate Decrease Severe: Severe Loss
Muscle Mass Non Severe: Mild Decrease Non Severe: Mild Loss
Severe: Moderate Decrease Severe: Severe Loss
Fluid Accumulation Non Severe: Mild Accumulation Non Severe: Mild Accumulation
Severe: Moderate to severe Severe: Moderate to severe
accumulation accumulation
Reduced Pet Caregiver Strength Non Severe: N/A Non Severe: N/A
Severe: Measurably reduced Severe: Measurably reduced
Additional criteria that can be used to Determine if Mild or Moderate Malnutrition ([employer] Manual 2018)
Mild Moderate Severe
Albumin gm/dl <3.0 gm/dl <2.5 gm/dl <2.0 gm/dl
Pre Albumin mg/dl <15 gm/dl <10 mg/dl <5.0 mg/dl
BMI <18.5 <17 <16
Use of terms such as suspected, likely, concern for, or probable (associated with a specific diagnosis that is being evaluated, monitored, or treated as if it exists) are acceptable and can be coded in the inpatient setting, when documented at the
time of discharge.
Thank you,
Alesia Bateman
CDI Specialist
Please use your independent medical judgment in providing your response.
== END 2024-01-11 16:45 | disposition home or self-care (01) | DRG 309 ==
LOC: IMU 13:35
PROVIDERS: Registered Nurse; Student in an Organized Health Care Education/Training Program; ADMITTING PHYSICIAN Internal Medicine; ATTENDING PHYSICIAN Internal Medicine; EMERGENCY PHYSICIAN Emergency Medicine; FAMILY PHYSICIAN Nurse Practitioner Adult Health
DX: I48.91 Unspecified atrial fibrillation (principal); E46 Unspecified protein-calorie malnutrition; K44.9 Diaphragmatic hernia without obstruction or gangrene; E78.5 Hyperlipidemia, unspecified; R63.4 Abnormal weight loss; Z85.46 Personal history of malignant neoplasm of prostate; Z68.22 Body mass index [BMI] 22.0-22.9, adult; Z79.01 Long term (current) use of anticoagulants
CPT/HCPCS: 80048; 80053; 80061; 83036; 83735; 84443; 85025; 85027; 87070; 93005; 93306; 96361; 96374; 99291